=== PATIENT | male | born 1950 | race Caucasian/White ===

== ENCOUNTER → 2021-08-22 | Outpatient (RCR) | payer MEDICARE, BC | LOC: PT | DX: Z86.73 Personal history of transient ischemic attack (TIA), and cerebral infarction without residual deficits (principal) ==

== ENCOUNTER 2021-08-24 09:00 | Outpatient (RCR) | payer MEDICARE, BC | END 2021-09-21 | disposition still patient (30) | LOC: PT | DX: Z86.73 Personal history of transient ischemic attack (TIA), and cerebral infarction without residual deficits (principal) ==

== ENCOUNTER 2021-09-26 08:54 | Outpatient (RCR) | payer MEDICARE, BC | END 2021-10-22 | disposition home or self-care (01) | LOC: PT | DX: I69.359 Hemiplegia and hemiparesis following cerebral infarction affecting unspecified side (principal) ==

== ENCOUNTER 2021-10-24 08:02 | Outpatient (RCR) | payer MEDICARE, BC | END 2021-11-22 | disposition home or self-care (01) | LOC: PT | DX: I69.30 Unspecified sequelae of cerebral infarction (principal) ==

== ENCOUNTER → 2021-11-09 | Outpatient (CLI) | payer MEDICARE, BC | LOC: RAD 18:19 | DX: M51.36 Other intervertebral disc degeneration, lumbar region (principal); M48.061 Spinal stenosis, lumbar region without neurogenic claudication; M48.07 Spinal stenosis, lumbosacral region ==

== ENCOUNTER 2021-11-23 08:45 | Outpatient (RCR) | payer MEDICARE, BC | END 2021-12-22 | disposition home or self-care (01) | LOC: PT | DX: I69.30 Unspecified sequelae of cerebral infarction (principal) ==

== ENCOUNTER 2021-12-26 08:45 | Outpatient (RCR) | payer MEDICARE, BC ==
[2022-01-06] MEDS ORDERED: NORVASC 10MG10 MG PO (10:34)
[2022-01-06] MEDS ORDERED: CLOPIDOGREL75 M2 PO (10:34)
[2022-01-06] MEDS ORDERED: AMLODIPINE BESYL5 MG PO (10:34)
[2022-01-06] MEDS ORDERED: DULOXETINE60 MG PO (10:34)
[2022-01-06] MEDS ORDERED: PANTOPRAZOLE SO40 MG PO (10:35)
[2022-01-06] MEDS ORDERED: WELLBUTRIN XL300 M1 PO (10:35)
[2022-01-06] MEDS ORDERED: FUROSEMIDE20 MG PO (10:35)
[2022-01-06] MEDS ORDERED: FINASTERIDE5 M1 PO (10:35)
[2022-01-06] MEDS ORDERED: FLOMAX0.4 MG PO (10:35)
[2022-01-06] MEDS ORDERED: ED TYLENOL6 UDTAB/BO (10:35)
[2022-01-06] MEDS ORDERED: CARVEDILOL6.25 MG PO (10:35)
[2022-01-06] MEDS ORDERED: NEURONTIN300 MG/CAP (10:35)
[2022-01-06] MEDS ORDERED: CELECOXIB200 M1 PO (11:22)
[2022-01-06] MEDS ORDERED: FUROSEMIDE40 MG (11:23)
[2022-01-06] MEDS ORDERED: SINGULAIR 110 MG/TAB PO (11:23)
[2022-01-06] MEDS ORDERED: DITROPAN XL10 M1 PO (11:25)
[2022-01-06] MEDS ORDERED: ADULT ASPIRIN R81 MG PO (11:25)
[2022-01-06] MEDS ORDERED: EZETIMIBE10 M1 PO (11:26)
[2022-01-06] MEDS ORDERED: ROPINIROLE HCL1 MG PO (11:27)
[2022-01-06] MEDS ORDERED: REMERON15 MG PO (11:28)
[2022-01-06] MEDS ORDERED: LOSARTAN POTAS100 MG PO (11:28)
[2022-01-06] MEDS ORDERED: ROSUVASTATIN CA40 MG PO (11:28)
== END 2022-01-22 | disposition still patient (30) ==
LOC: OT
DX: I69.30 Unspecified sequelae of cerebral infarction (principal)

== ENCOUNTER 2022-01-18 14:57 | Outpatient (RCR) | payer MEDICARE, BC ==
[~2022-01-18 14:57] MED LIST: ADULT ASPIRIN R81 MG PO; AMLODIPINE BESYL5 MG PO; CARVEDILOL6.25 MG PO; CELECOXIB200 M1 PO; CLOPIDOGREL75 M2 PO; DITROPAN XL10 M1 PO; DULOXETINE60 MG PO; ED TYLENOL6 UDTAB/BO; EZETIMIBE10 M1 PO; FINASTERIDE5 M1 PO; FLOMAX0.4 MG PO; FUROSEMIDE20 MG PO; FUROSEMIDE40 MG; LOSARTAN POTAS100 MG PO; NEURONTIN300 MG/CAP; NORVASC 10MG10 MG PO; PANTOPRAZOLE SO40 MG PO; REMERON15 MG PO; ROPINIROLE HCL1 MG PO; ROSUVASTATIN CA40 MG PO; SINGULAIR 110 MG/TAB PO; WELLBUTRIN XL300 M1 PO
== END 2022-01-22 | disposition still patient (30) ==
LOC: PT
DX: I63.9 Cerebral infarction, unspecified (principal); G81.94 Hemiplegia, unspecified affecting left nondominant side

== ENCOUNTER 2022-01-30 13:36 | Outpatient (RCR) | payer MEDICARE, BC | END 2022-02-21 | disposition home or self-care (01) | LOC: OT → PT 13:36 → OT 13:36 | DX: I69.398 Other sequelae of cerebral infarction (principal) ==

== ENCOUNTER 2022-01-31 13:00 | Outpatient (RCR) | payer MEDICARE, BC | END 2022-02-21 | disposition home or self-care (01) | LOC: PT | DX: I69.354 Hemiplegia and hemiparesis following cerebral infarction affecting left non-dominant side (principal) ==

== ENCOUNTER 2022-03-28 08:43 | Outpatient (RCR) | payer MEDICARE, BC | END 2022-04-24 13:11 | disposition home or self-care (01) | LOC: PT 08:43 | DX: I69.354 Hemiplegia and hemiparesis following cerebral infarction affecting left non-dominant side (principal) ==

== ENCOUNTER 2022-03-28 08:44 | Outpatient (RCR) | payer MEDICARE, BC | END 2022-04-24 13:12 | disposition home or self-care (01) | LOC: OT 08:44 | DX: I69.30 Unspecified sequelae of cerebral infarction (principal) ==

== ENCOUNTER → 2022-04-12 | Outpatient (CLI) | payer MEDICARE, BC | LOC: RAD 07:13 | DX: I69.30 Unspecified sequelae of cerebral infarction (principal); R60.0 Localized edema; R53.1 Weakness ==

== ENCOUNTER 2022-06-19 10:02 | Outpatient (RCR) | payer MEDICARE, BC | END 2022-06-22 | disposition home or self-care (01) | LOC: OT | DX: I69.30 Unspecified sequelae of cerebral infarction (principal); R53.1 Weakness ==

== ENCOUNTER → 2022-07-12 | Outpatient (CLI) | payer MEDICARE, BC | LOC: RAD 13:34 | DX: I69.30 Unspecified sequelae of cerebral infarction (principal) ==

== ENCOUNTER 2022-11-06 09:59 | Outpatient (RCR) | payer MEDICARE, BC ==
[2022-11-20] MEDS ORDERED: AMIODARONE200 MG PO (08:39)
[2022-11-20] MEDS ORDERED: PREDNISONE20 M1 PO (10:55)
[2022-11-20] MEDS ORDERED: VIBRAMYCIN HYC100 MG PO (12:51)
== END 2022-11-22 | disposition home or self-care (01) ==
LOC: SPEECH
DX: I69.30 Unspecified sequelae of cerebral infarction (principal)

== ENCOUNTER 2022-11-23 08:00 | Outpatient (RCR) | payer MEDICARE, BC ==
[~2022-11-23 08:00] MED LIST changes: +AMIODARONE200 MG PO; +PREDNISONE20 M1 PO; +VIBRAMYCIN HYC100 MG PO
== END 2022-12-22 | disposition home or self-care (01) ==
LOC: SPEECH
DX: I69.354 Hemiplegia and hemiparesis following cerebral infarction affecting left non-dominant side (principal)

== ENCOUNTER 2023-01-23 17:31 | Outpatient (RCR) | payer MEDICARE, BC | END 2023-02-21 11:56 | disposition home or self-care (01) | LOC: OPPGERO | DX: F43.21 Adjustment disorder with depressed mood (principal) ==

== ENCOUNTER → 2023-11-22 | Outpatient (CLI) | payer MEDICARE, BC | LOC: RAD 10:40 | DX: M79.672 Pain in left foot (principal); Z87.81 Personal history of (healed) traumatic fracture ==